=== PATIENT | male | born 1975 | race Caucasian/White ===

== ENCOUNTER 2022-12-15 09:31 | Inpatient (IN) | payer OTHER ==
[~2022-12-15] VITALS: Ht 203.2 cm; Wt 131.2 kg
[2022-12-15] MEDS ORDERED: SODIUM CHLORIDE 0.9% IV ONE (10:15)
[2022-12-15 10:30] LABS: HEMATOCRIT. 49.8 % (42.0-52.0); HEMOGLOBIN. 17.3 g/dL (14.0-18.0); MEAN CORPUSCULAR HEMOGLOBIN 29.9 pg (28.0-32.0); MEAN CORPUSCULAR VOLUME 86.1 fL (80.0-94.0); PLATELET 265 x1000/uL (130-400); RED BLOOD CELL COUNT 5.79 mill/uL (4.7-6.1); RED CELL DISTRIBUTION WIDTH 13.8 % (11.6-14.6)
[2022-12-15 10:40] LABS: CHLORIDE 105 mEq/L (98-107)
[2022-12-15 10:51] LABS: BETA HYDROXYBUTYRATE 0.5 mMol/L (0.0-0.3)
[2022-12-15 11:11] LABS: PLATELET ESTIMATE NORMAL
[2022-12-15] MEDS ORDERED: CEFTRIAXONE 1GM PREMIX 50 ML IV NR (13:00)
[2022-12-15] MEDS ORDERED: AZITHROMYCIN 500MG/250ML 250 ML IV SCH (14:00)
[2022-12-15 14:25] LABS: CLARITY URINE CLEAR (CLEAR); COLOR URINE YELLOW (YELLOW); KETONES URINE 2+ (NEGATIVE); LEUKOCYTE ESTERASE URINE NEGATIVE (NEGATIVE); NITRITE URINE NEGATIVE (NEGATIVE); OCCULT BLOOD URINE NEGATIVE (NEGATIVE); PH URINE 5.5 (4.5-8.0); PROTEIN URINE NEGATIVE (NEGATIVE); SPECIFIC GRAVITY URINE 1.036 (1.005-1.030); UROBILINOGEN URINE 0.2 E.U./dL (0.2-1.0)
[2022-12-15] MEDS ORDERED: INSULIN REGULAR (HUMULIN R) 300UNITS/3ML VIAL IV ONE (15:30)
[2022-12-15 16:00] VITALS: BP 123/86
[2022-12-15 16:30] VITALS: BP 123/86
[2022-12-15] MEDS ORDERED: DEXTROSE 50% WATER 50ML SYRINGE IV PRN (16:45)
[2022-12-15] MEDS ORDERED: ACETAMINOPHEN 325MG TABLET PO PRN (16:45)
[2022-12-15] MEDS ORDERED: ONDANSETRON HCL 4MG/2ML INJ IV PRN (16:45)
[2022-12-15] MEDS: ENOXAPARIN 30MG/0.3ML SYR SUBCUT SCH (18:07)
[2022-12-15] MEDS: INSULIN LISPRO 100 UNITS/ML SUBCUT SCH ×2 (18:20→21:13)
[2022-12-15] MEDS: SODIUM CHLORIDE 0.9% 1,000 ML IV SCH (18:21)
[2022-12-15 20:00] VITALS: BP 124/81
[2022-12-15] MEDS ORDERED: CEFTRIAXONE 1GM PREMIX 50 ML IV SCH (20:00)
[2022-12-15] MEDS: BLOOD SUGAR DIAGNOSTIC STRIP TEST SCH (21:00)
[2022-12-15] MEDS: INSULIN GLARGINE 100 UNITS/ML SUBCUT SCH (21:12)
[2022-12-16] VITALS: BP 104/66
[2022-12-16 04:00] VITALS: BP 112/70
[2022-12-16] MEDS: SODIUM CHLORIDE 0.9% 1,000 ML IV SCH ×3 (04:26→23:53)
[2022-12-16] MEDS: ENOXAPARIN 30MG/0.3ML SYR SUBCUT SCH ×2 (05:11→18:01)
[2022-12-16] MEDS: BLOOD SUGAR DIAGNOSTIC STRIP TEST SCH ×4 (06:12→22:23)
[2022-12-16] MEDS: INSULIN LISPRO 100 UNITS/ML SUBCUT SCH ×4 (06:18→22:30)
[2022-12-16 06:23] LABS: CHLORIDE 106 mEq/L (98-107)
[2022-12-16 08:00] VITALS: BP 127/80
[2022-12-16 09:12] LABS: BASOPHILS % 0.2 % (0.0-2.0); EOSINOPHILS % 0.8 % (0.0-5.0); HEMOGLOBIN. 14.1 g/dL (14.0-18.0); LYMPHOCYTES % 13.6 % (20.0-50.0); MEAN CORPUSCULAR HEMOGLOBIN 29.4 pg (28.0-32.0); MEAN CORPUSCULAR VOLUME 85.5 fL (80.0-94.0); MEAN PLATELET VOLUME 10.3 fl (7.4-10.4); MONOCYTES % 7.6 % (2.0-8.0); NEUTROPHILS % 77.8 % (40.0-76.0); PLATELET 218 x1000/uL (130-400); RED CELL DISTRIBUTION WIDTH 13.9 % (11.6-14.6)
[2022-12-16 12:00] VITALS: BP 110/72
[2022-12-16] MEDS: CEFTRIAXONE 1,000 MG in DEXTROSE 5% WATER 50 ML IV SCH (12:55)
[2022-12-16 16:00] VITALS: BP 109/69
[2022-12-16] MEDS: INSULIN GLARGINE 100 UNITS/ML SUBCUT SCH (22:30)
[2022-12-17] VITALS: BP 134/88
[2022-12-17 04:00] VITALS: BP 130/89
[2022-12-17] MEDS: ENOXAPARIN 30MG/0.3ML SYR SUBCUT SCH ×2 (05:31→18:00)
[2022-12-17] MEDS ORDERED: POTASSIUM CHLORIDE 20MEQ TABLET SR PO NR (06:00)
[2022-12-17 06:46] LABS: BASOPHILS % 0.3 % (0.0-2.0); EOSINOPHILS % 1.7 % (0.0-5.0); HEMATOCRIT. 39.9 % (42.0-52.0); LYMPHOCYTES % 17.5 % (20.0-50.0); MEAN CORPUSCULAR HEMOGLOBIN 29.8 pg (28.0-32.0); MEAN CORPUSCULAR VOLUME 85.2 fL (80.0-94.0); MONOCYTES % 10.6 % (2.0-8.0); NEUTROPHILS % 69.9 % (40.0-76.0); PLATELET 224 x1000/uL (130-400); RED BLOOD CELL COUNT 4.69 mill/uL (4.7-6.1); RED CELL DISTRIBUTION WIDTH 13.7 % (11.6-14.6)
[2022-12-17] MEDS: BLOOD SUGAR DIAGNOSTIC STRIP TEST SCH ×4 (07:06→19:30)
[2022-12-17 07:26] LABS: CHLORIDE 106 mEq/L (98-107)
[2022-12-17 08:00] VITALS: BP 131/87
[2022-12-17] MEDS: INSULIN LISPRO 100 UNITS/ML SUBCUT SCH ×4 (08:17→19:30)
[2022-12-17] MEDS: SODIUM CHLORIDE 0.9% 1,000 ML IV SCH ×2 (08:45→18:45)
[2022-12-17] MEDS ORDERED: INSULIN GLARGINE 100 UNITS/ML SUBCUT SCH (10:00)
[2022-12-17 12:00] VITALS: BP 137/85
[2022-12-17] MEDS: CEFTRIAXONE 1,000 MG in DEXTROSE 5% WATER 50 ML IV SCH (12:41)
[2022-12-17 16:00] VITALS: BP 132/91
[2022-12-17 17:47] VITALS: BP 132/91
[2022-12-17] MEDS: INSULIN GLARGINE 100 UNITS/ML SUBCUT SCH (19:30)
== END 2022-12-17 19:35 | disposition home or self-care (01) | DRG 392 ==
LOC: ER 09:48 → 7EST 15:13
PROVIDERS: ADMIT Internal Medicine; ATTEND Internal Medicine
DX: K52.9 Noninfective gastroenteritis and colitis, unspecified (principal); E86.0 Dehydration; D72.829 Elevated white blood cell count, unspecified; E11.65 Type 2 diabetes mellitus with hyperglycemia
CPT/HCPCS: 36415; 71045; 80048; 80053; 81003; 82010; 82962; 83036; 83880; 84145; 84484; 85025; 93005; 99291; J0456; J0696; J1650; J1815; J7030; J7060